=== PATIENT | female | born 1995 | race Caucasian/White ===

== ENCOUNTER 2017-06-01 20:58 | Emergency (ER) | payer SELFPAY | END 2017-06-02 00:40 | disposition left against medical advice (07) | LOC: ED 20:58 | DX: M54.9 Dorsalgia, unspecified (principal); M25.559 Pain in unspecified hip; V89.2XXA Person injured in unspecified motor-vehicle accident, traffic, initial encounter; Y93.89 Activity, other specified; Y99.9 Unspecified external cause status; Y92.410 Unspecified street and highway as the place of occurrence of the external cause; Z53.21 Procedure and treatment not carried out due to patient leaving prior to being seen by health care provider ==